=== PATIENT | female | born 1990 | race Caucasian/White ===

== ENCOUNTER 2021-11-18 07:31 | Emergency (ER) | payer MEDICAID ==
[~2021-11-18] VITALS: Ht 160 cm; Wt 80.9 kg
[~2021-11-18 07:31] MED LIST: AUD NEB; DIVA-112 PO; GABA-1181 PO
[2021-11-18] MEDS ORDERED: ARIP2TAB27 PO (08:08)
[2021-11-18] MEDS ORDERED: IBUPROFEN 600 MG TABLET PO ONE (09:15)
[2021-11-18] MEDS ORDERED: DOXYCYCLINE HYCLATE 100 MG TABLET PO ONE (09:15)
[2021-11-18] MEDS ORDERED: DOXY-354 PO (09:28)
[2021-11-18 09:45] VITALS: BP 128/86
== END 2021-11-18 09:48 | disposition left against medical advice (07) ==
LOC: EMS 07:33
DX: L02.01 Cutaneous abscess of face (principal); L02.512 Cutaneous abscess of left hand; L02.511 Cutaneous abscess of right hand; J45.909 Unspecified asthma, uncomplicated; R56.9 Unspecified convulsions; F17.210 Nicotine dependence, cigarettes, uncomplicated; F12.90 Cannabis use, unspecified, uncomplicated; F19.90 Other psychoactive substance use, unspecified, uncomplicated; Z53.29 Procedure and treatment not carried out because of patient's decision for other reasons; Z88.0 Allergy status to penicillin
CPT/HCPCS: 99283